=== PATIENT | male | born 1955 | race Caucasian/White ===

== ENCOUNTER 2019-03-09 17:52 | Emergency (ER) | payer OTHER ==
[~2019-03-09] VITALS: Ht 162.6 cm; Wt 68.0 kg
[2019-03-09 17:53] VITALS: BP 154/90
--- NOTE | 2019-03-09 18:00 | NUR ---
PATIENT AMBULATED STEADY GAIT TO BED 4.
--- NOTE | 2019-03-09 18:05 | NUR ---
63/M C/O LEFT SHOULDER PAIN S/P FALL LAST WEEK ( 7 DAYS AGO). PAIN FROM ELBOW TO SHOULDER. DID NOT HIT HEAD. TOOK TYLENOL AT HOME TO NO RELIEF. STATES CAME TO ER TODAY BECAUSE STILL HAVING SEVERE PAIN AND CANNOT EXTEND SHOULDER JOINT PAST 90DEGREES. HX- DM RX- INSULIN
--- NOTE | 2019-03-09 18:07 | NUR ---
XRAY AT BEDSIDE
--- NOTE | 2019-03-09 19:04 | NUR ---
JESSICA VALDEZ SPEAKING WITH PT AT BEDSIDE.
[2019-03-09] MEDS ORDERED: IBUPROFEN 600 MG TAB PO ONE (19:05)
--- NOTE | 2019-03-09 19:10 | NUR ---
EMT AT BEDSIDE FOR SPLINT.
[2019-03-09 19:24] VITALS: BP 149/84
--- NOTE | 2019-03-09 19:24 | NUR ---
Patient discharged with v/s stable. Written and verbal after care instructions given and explained. Patient alert, oriented and verbalized understanding of instructions. Ambulatory with steady gait. All questions addressed prior to discharge. ID band removed. Patient advised to follow up with PMD. Rx of NORCO AND IBUPROFEN given. CD IMAGES GIVEN TO PT. Patient educated on indication of medication including possible reaction and side effects. Opportunity to ask questions provided and answered.
== END 2019-03-09 19:24 | disposition home or self-care (01) ==
LOC: MED 17:52
DX: S42.252A Displaced fracture of greater tuberosity of left humerus, initial encounter for closed fracture (principal); E11.9 Type 2 diabetes mellitus without complications; W18.39XA Other fall on same level, initial encounter; Y92.89 Other specified places as the place of occurrence of the external cause; Y93.89 Activity, other specified; Y99.8 Other external cause status
CPT/HCPCS: 29105; 73030; 99283; Q0092